=== PATIENT | male | born 1970 | race Caucasian/White ===

== ENCOUNTER → 2018-01-22 | Outpatient (CLI) | payer SELFPAY ==
--- NOTE | 2018-01-22 13:28 | Diagnostic Imaging Report ---
PROCEDURE: US carotid duplex, bilateral. TECHNIQUE: Multiple real-time grayscale images were obtained over the carotid arteries in various projections, bilaterally. Additional duplex Doppler and color Doppler images were also obtained. INDICATION: Atherosclerotic calcification and hypertension with tobacco use. FINDINGS: There are no focally elevated velocities in either internal carotid artery. The ICA/CCA ratios are within normal limits, bilaterally. There is antegrade flow in the vertebral arteries, bilaterally. Grayscale images demonstrate minimal carotid plaque, bilaterally. Parameters based on the consensus panel Hartman-Scale and Doppler ultrasound criteria published May 2003, Radiology, Volume 229. DOPPLER (peak systolic velocity M/S Right Left CCA .96 .99 ICA Proximal .68 .77 ICA Mid .96 .61 ICA Distal .92 .65 RATIO 1.0 .8 ECA 1.29 .86 VERT .40 .39 IMPRESSION: Minimal bilateral carotid plaque however spectral analysis shows no evidence of a hemodynamically significant stenosis in either internal carotid artery. Dictated by: Dictated on workstation # [id number]
== END ==
LOC: RAD 08:22
PROVIDERS: ATTEND Nurse Practitioner Family
DX: I65.23 Occlusion and stenosis of bilateral carotid arteries (principal); I10 Essential (primary) hypertension; Z72.0 Tobacco use
CPT/HCPCS: 93880